=== PATIENT | female | born 1980 | race Two or more races ===

== ENCOUNTER 2025-04-27 15:13 | Emergency (ER) | payer OTHER ==
[~2025-04-27] VITALS: Ht 157.5 cm; Wt 78.9 kg
[~2025-04-27 15:13] MED LIST: KETO10TA2 PO; MEDROLPACK PO; METHOCARBAMOL500 MG PO; TRAMADOL HCL50 MG PO
[2025-04-27] MEDS ORDERED: DEXAMETHASONE SODIUM PHOSPHATE 4 MG/ML VIAL IM ONE (16:00)
[2025-04-27] MEDS ORDERED: ORPHENADRINE CITRATE 100 MG TABLET PO ONE (16:00)
[2025-04-27] MEDS ORDERED: KETOROLAC TROMETHAMINE 60 MG VIAL IM ONE ×2 (16:00→17:24)
[2025-04-27] MEDS ORDERED: DEXAMETHASONE SODIUM PHOSPHATE 4 MG/ML VIAL ONE (17:24)
[2025-04-27] MEDS ORDERED: ORPHENADRINE CITRATE 30 MG/ML AMPUL ONE (17:24)
[2025-04-27] MEDS ORDERED: NAPR500T14 PO (17:28)
[2025-04-27] MEDS ORDERED: CYCLOBENZAPRINE10 MG PO (17:28)
== END 2025-04-27 17:59 | disposition home or self-care (01) ==
LOC: ER 15:14
DX: M50.23 Other cervical disc displacement, cervicothoracic region (principal); Z88.0 Allergy status to penicillin